=== PATIENT | female | born 1975 | race Caucasian/White ===

== ENCOUNTER 2016-09-21 16:16 | Emergency (ER) | payer OTHER ==
[~2016-09-21] VITALS: Ht 157.5 cm; Wt 58.6 kg
[2016-09-21 16:27] VITALS: BP 117/84; PULSE 79; RESP 22; O2SAT 100
--- NOTE | 2016-09-21 17:22 | ED.REPORT ---
HPI-General Illness Date of Service Sep 21, 2016 ED Provider: Good Waller MD A 41 year old female with recent plastic surgery to bilateral LE (09/21/2016) presents to the ED with post-operative, bilateral thigh pain that began yesterday. Patient is currently expressing concern because of worsening pain, drain dysfunction and swelling. She called her surgeon this afternoon who directed her to return for follow up tomorrow but the patient felt as if her legs "were going to explode". Patient has also been experiencing nausea without vomiting. She denies any fever or chills. Patient is unable to take NSAIDs due to history of stomach ulcers. Nursing Notes Stated Complaint: 1 DAY POST-OP BI THIGH, PAIN/LEAKAGE FROM DRAIN Chief Complaint: General Complaint Nursing Notes Reviewed: Yes Allergies: Uncoded Allergies: NSAIDS (Allergy, Intermediate, 09/21/16) General Time Seen by MD: 17:19 Chief Complaint Other (Post Op Pain) Hx Obtained From: Patient Arrived By: Walk-in Sudden in Onset?: No Onset Occurred: Yesterday Symptom Duration: Since onset Location: : Thigh left: Thigh right Quality: Painful Radiation: : Does not radiate Severity: Current: Moderate Severity: Maximum: Moderate Associated with: Reports: Nausea, Denies: Fever, Vomiting Pertinent Negative: Pt denies other symptoms Recent Healthcare: No recent hospitalization, Recent doctor visit Past Medical History Past Medical History Multiple weight loss surgeries Hx of stomach ulcers Past Surgical History "Thighplasty" (09/22/2016) Multiple weight loss operations Smoking History Unknown if Ever Smoker Social History Other Social History: Good social support, Local resident Ambulatory Status Independent Review of Systems Full Review of Systems Constitutional: Denies: Chills, Fever GI: Reports: Nausea, Denies: Vomiting Musculoskeletal: Reports: Extremity pain (LE), Extremity swelling (LE) Complete sys rev & neg: except as marked. Physical Exam Vital Signs Vital Signs Date Time Temp Pulse Resp B/P Pulse Ox O2 Delivery O2 Flow Rate FiO2 09/21/16 20:54 83 16 98/69 99 Room Air 09/21/16 16:27 36.6 79 22 117/84 100 Room Air Initial VS: Reviewed Neck: Supple, Non-tender, Full range of motion Skin: Warm, Dry, No cyanosis Neurologic: Alert, Oriented, Nonfocal Psychiatric: Mood/affect normal, Behavior normal, Normal thought content General/Constitutional: Awake, Alert Behavior: Positive: Anxious Head / Eyes: Atraumatic, Normocephalic, PERRL Respiratory / Chest: Atraumatic, Breath sounds NL, Breath sounds = bilat, No respiratory distress Cardiovascular: Heart rate NL, Regular rhythm, Heart sounds NL, No murmurs Abdomen: Atraumatic, Soft Upper Extremities Upper Extremity / MS: Atraumatic, Inspection NL, Neurologic intact, Vascular intact Lower Extremity / Pelvis / MS: Neurologic intact, Vascular intact LOWER EXTREMITIES: Bandages present around bilateral thighs Left leg - medial incision to left knee No surrounding erythema, fluctuance or mass KETURAH drain is in fluid - mild amount of discharge. Interpretation & Diagnostics US Focused Lower Ext Venous IMPRESSION: No evidence of DVT Exam Performed by: Radiologist Re-Eval/Medical Decision Med Decision/Clinical Course 41-year-old female who is one day status post cosmetic surgery to her bilateral thighs to remove excess skin presenting with left thigh pain. She reports the KETURAH drain is not draining. There is no evidence of infection. Ultrasound shows no DVT or abscess or fluid pocket. She was advised to follow-up with her surgeon tomorrow which is what he had told her. Return precautions given regarding signs and symptoms of infection or other new or worsening symptoms. Time of Eval: 18:09 Patient Status: Condition improved Re-Evaluation/Progress Note: She is informed of her reassuring examination. All questions are addressed. Patient agrees to follow up with her surgeon. She is offered an US to rule out DVT and accepts. Counseled Regarding: Diagnosis, Need for follow-up, When/why to return to ED Discharge & Departure Primary Impression: Post-operative pain Disposition: Home Discharge Condition All VS Reviewed: Yes Condition: Improved Additional Instructions: Thank you for trusting us with your care this evening. Your emergency department examination and ultrasound are reassuring that there is no dangerous cause for concern at this time. Please follow up with your surgeon tomorrow. Please return to the emergency department if you begin to develop any new or worsening conditions including any high fever, shaking chills, nausea, vomiting , worsening pain, any redness/swelling, numbness/tingling or weakness in the legs. Referrals: [facility] Scribe Attestation Portions of this note were transcribed by Rebecca Yoon. I, Dr. Waller personally performed the history, physical exam and medical decision-making; I reviewed and confirmed the accuracy of the information in the transcribed note. Signed by: Mitchell Tompkins, 09/21/161914. Good Waller MD Sep 21, 2016 17:22 REBECCA YOON Sep 21, 2016 17:53
[2016-09-21 20:54] VITALS: BP 98/69; PULSE 83; RESP 16; O2SAT 99
--- NOTE | 2016-10-06 12:11 | DRSVH ---
CORRECTED MR NUMBER ON 10/06/16 PROCEDURE: US VEINOUS LEG DUPLEX UNILATERAL, LEFT INDICATIONS: r/o LLE DVT. Surgery yesterday L Leg pian TECHNIQUE: Real-time imaging, as well as color and pulse Doppler interrogation, were performed of the lower extr emity deep veins from the inguinal ligament to the popliteal fossa. COMPARISON: None. FINDINGS: The deep veins are normally compressible, and free of intraluminal thrombus. Color and pu lse Doppler demonstrate normal phasic intraluminal flow. There is normal augmentation response to di stal compression maneuver. IMPRESSION: The study is somewhat limited by postsurgical changes at the groin and the region, but no DVT seen in the deep venous structures available for review (the left superficial femoral vein). Dictated by: Kareem Hicks M.D. on 09/22/2016 at 9:20 Approved by: Kareem Hicks M.D. on 09/22/2016 at 9:21
== END 2016-09-21 20:00 | disposition home or self-care (01) ==
LOC: SED 16:16 → EDUNIT# 16:16 → SED 20:00
DX: M79.652 Pain in left thigh (principal); G89.18 Other acute postprocedural pain; R11.0 Nausea; K21.9 Gastro-esophageal reflux disease without esophagitis; Z98.890 Other specified postprocedural states; Z87.19 Personal history of other diseases of the digestive system; Z98.84 Bariatric surgery status; Z88.6 Allergy status to analgesic agent
CPT/HCPCS: 93970; 96372; 99284; J2270

== ENCOUNTER 2016-09-23 22:55 | Emergency (ER) | payer OTHER ==
[~2016-09-23] VITALS: Ht 157.5 cm; Wt 58.0 kg
[2016-09-23 23:05] VITALS: BP 107/74; PULSE 77; RESP 18; O2SAT 100
--- NOTE | 2016-09-24 00:36 | ED.REPORT ---
HPI-General Illness Date of Service Sep 24, 2016 ED Provider: Dr. Espinal 41 y/o female with a recent plastic surgery to bilateral lower extremities presents to the ED with post-operative, bilateral thigh pain, onset 3 days ago. The pt was seen at the ED 3 days ago with the same complaint and was discharged with instructions to follow up with her surgeon. She talked to her surgeon, Dr. Sosa at [facility], who recommended tightening the fuad bandages and elevating her legs. She also complains of drain dysfunction and worsening swelling, despite following post-op instructions.She states "I'm just asking for one day of pain medications." The pt was prescribed 50 Oxycodone 5mg tablets upon discharge after her surgery and has used them all within 3 days. Nursing Notes Stated Complaint: POST-OP PAIN Chief Complaint: Extremity Trauma Nursing Notes Reviewed: Yes Allergies: Uncoded Allergies: NSAIDS (Allergy, Intermediate, 09/21/16) General Time Seen by MD: 00:36 Chief Complaint Other (bilateral thigh pain) Hx Obtained From: Patient Arrived By: Walk-in Sudden in Onset?: No Onset Occurred: 4 days ago Symptom Duration: Since onset Location: : Thigh left: Thigh right Quality: Painful Radiation: : Does not radiate Severity: Current: Severe Severity: Maximum: Severe Recent Healthcare: Recent doctor visit Similar Sx Previous: Yes Past Medical History Past Medical History Multiple weight loss surgeries Hx of stomach ulcers Past Surgical History "Thighplasty" (09/22/2016) Multiple weight loss operations Smoking History Unknown if Ever Smoker Social History Other Social History: Good social support, Local resident Ambulatory Status Independent Review of Systems Full Review of Systems Musculoskeletal: Reports: Extremity pain (bilateral thigh pain), Extremity swelling (bilateral thigh swelling, post-op) Complete sys rev & neg: except as marked. Physical Exam Vital Signs Vital Signs Date Time Temp Pulse Resp B/P Pulse Ox O2 Delivery O2 Flow Rate FiO2 09/24/16 02:17 36.6 74 16 112/76 99 Room Air 09/23/16 23:05 36.2 77 18 107/74 100 Room Air Initial VS: Reviewed Head / Eyes: Atraumatic, Normocephalic Neck: Supple, Non-tender, Full range of motion Respiratory: Breath sounds normal, Clear to auscultation, No respiratory distress Cardiovascular: Regular rate & rhythm, Heart sounds normal, Intact distal pulses Abdomen / GI: Soft, Non-tender Skin: Warm, Dry, No cyanosis Neurologic: Alert, Oriented, Nonfocal General/Constitutional: Awake, Alert, Cooperative Upper Extremities Upper Extremity / MS: Atraumatic, Full range of motion, No swelling, No erythema, No deformity, Neurologic intact, Vascular intact Lower Extremity / Pelvis / MS: Atraumatic, No erythema, No deformity, Neurologic intact, Vascular intact Both thighs bandaged. Bilateral KETURAH drains have small amount of fluid in them each. Dressings taken down, wounds look good no erythemal warmth or dishcarge Re-Eval/Medical Decision Source of Hx: Old records Time of Eval: 01:45 Patient Status: Condition improved Re-Evaluation/Progress Note: Took down the dressing on both legs. The wounds are healing well. There is no enduration and warmth and the KETURAH drains are functioning properly. Discussed diagnosis and plan to discharge. Pt understands and agrees with the plan. F/U instructions and RTER warning given. All questions addressed. Consultation : Call Returned at: 02:09 Network Systems Engineer: Will see patient, Agrees with eval, Agrees with plan Note: Consulted Dr. Sosa, surgeon who states the pt was prescribed 50 Oxycodone tablets. Used those in less than 3 days. He will see the pt next week. Counseled Regarding: Diagnosis, Need for follow-up, When/why to return to ED Discharge & Departure Primary Impression: Post-operative pain Disposition: Home Discharge Condition All VS Reviewed: Yes Additional Instructions: Wounds appear to be healing well. We have provided 10 oxycodone/apap for short- term pain control. May use 1-2 every 4 hours as needed for pain. Follow up GIOVANA at [facility] for further pain control. Return to ED for fevers, redness from legs. Referrals: [facility] Res[facility] Scribe Attestation Portions of this note were transcribed by Teofilo Quiñones. I, , personally performed the history, physical exam and medical decision- making;I reviewed and confirmed the accuracy of the information in the transcribed note. Signed by Mitchell Latham. 09/24/16 02:16 John Paul Espinal MD Sep 24, 2016 00:36 Teofilo Quiñones Sep 24, 2016 00:48
[2016-09-24] MEDS ORDERED: _oxyCODONE/APAP 5-325 mg Tablet PO PRN (01:50)
[2016-09-24 02:17] VITALS: BP 112/76; PULSE 74; RESP 16; O2SAT 99
== END 2016-09-24 02:18 | disposition home or self-care (01) ==
LOC: SED 22:55
DX: G89.18 Other acute postprocedural pain (principal); Z88.6 Allergy status to analgesic agent

== ENCOUNTER 2016-09-26 20:50 | Emergency (ER) | payer OTHER ==
[~2016-09-26] VITALS: Ht 157.5 cm; Wt 58.6 kg
[2016-09-26 20:59] VITALS: BP 112/70; PULSE 82; RESP 18; O2SAT 100
--- NOTE | 2016-09-27 00:15 | ED.REPORT ---
HPI-Extremity Problem Lower Date of Service Sep 27, 2016 ED Provider: Dr. Seals 41 y/o female with a hx of meth, cocaine and alcohol abuse with a recent plastic surgery to bilateral lower extremities presents to the ED with post- operative, bilateral thigh pain, onset a week ago. Associated sx include bilateral lower extremity swelling, worsening erythema and mild dehydration. She denies fever and using narcotics chronically. The pt was seen at the ED 3 days ago with the same complaint and was discharged with a prescription for Oxycodone. She states her surgeon, Dr. Sosa at [facility], has refused to prescribe any more pain medications. Her last alcoholic drink was 2 days ago. Nursing Notes Stated Complaint: PAIN IN LEGS Chief Complaint: General Complaint Nursing Notes Reviewed: Yes Allergies: Uncoded Allergies: NSAIDS (Allergy, Intermediate, 09/21/16) Scheduled PRN oxyCODONE-Acetaminophen 5-325 mg (oxyCODONE-Acetaminophen 5-325 mg) 1 Each Tablet 1-2 TAB PO Q6H PRN PRN For Pain General Time Seen by MD: 00:14 Chief Complaint Other (Bilateral thigh pain post surgery) Hx Obtained From: Patient Arrived By: Walk-in Onset Occurred: 1 week ago Symptom Duration: Since onset Location: : Thigh left: Thigh right Quality: Painful Severity: Current: Severe Severity: Maximum: Severe Recent Healthcare: Recent doctor visit Similar Sx Previous: Yes Past Medical History Past Medical History Multiple weight loss surgeries Hx of stomach ulcers Past Surgical History "Thighplasty" (09/22/2016) Multiple weight loss operations Smoking History Current Every Day Smoker Social History Alcohol Use: 1-3 per day Drug Use: Cocaine, Meth Other Social History: Good social support, Local resident Ambulatory Status Independent Review of Systems Reports: erythema in both thighs near the drains Musculoskeletal: Reports: Extremity pain (both thighs), Extremity swelling ( both thighs) Complete sys rev & neg: except as marked. Physical Exam Initial Vital Signs Vital Signs (First) Date Time Temp Pulse Resp B/P Pulse Ox O2 Delivery O2 Flow Rate FiO2 09/26/16 20:59 36.8 82 18 112/70 100 Room Air Initial VS: Reviewed, Vital signs normal Head / Eyes: Atraumatic, Normocephalic Neck: Supple, Non-tender, Full range of motion Respiratory: Breath sounds normal, Clear to auscultation, No respiratory distress Cardiovascular: Regular rate & rhythm, Heart sounds normal, Intact distal pulses Abdomen / GI: Soft, Non-tender Upper Extremities: Vascular intact, Neuro intact, No swelling, No tenderness Skin: Warm, Dry, No cyanosis Neurologic: Alert, Oriented, Nonfocal Lower Extremity / Pelvis / MS: Atraumatic, Full range of motion, No deformity, Neurologic intact, Vascular intact Thigh fuad-wraps in place Bilateral Nile-Carcamo drains in place Swelling and erythema distal to the insertion point of the drains Ankle / Foot: Atraumatic, Full range of motion, No swelling, Non-tender, No deformity, Neurologic intact Interpretation & Diagnostics Lab Results Interpretation Result Diagram: 09/27/16 0140 09/27/16 0140 Test 09/27/16 01:40 09/27/16 04:10 White Blood Count 15.4th/mm3 (3.8-10.1) Red Blood Count 4.05mil/mm3 (3.90-5.20) Hemoglobin 12.0g/dL (12.0-15.6) Hematocrit 36.3% (35.0-46.0) Mean Corpuscular Volume 89.6fL (81-100) Mean Corpuscular Hemoglobin 29.6pg (27.0-35.0) Mean Corpuscular Hemoglobin Concent 33.1% (32.0-37.0) Red Cell Distribution Width 14.4% (12.3-15.4) Platelet Count 354bil/L (150-400) Neutrophils (%) (Auto) 74.6% (40-74) Lymphocytes (%) (Auto) 15.0% (14-46) Monocytes (%) (Auto) 9.4% (4-12) Eosinophils (%) (Auto) 0.5% (0-5) Basophils (%) (Auto) 0.2% (0-3) Sodium Level 136mEq/L (134-144) Potassium Level 4.3mEq/L (3.5-5.2) Chloride Level 95mEq/L (97-108) Carbon Dioxide Level 29mmol/L (18-29) Blood Urea Nitrogen 8mg/dL (6-20) Creatinine 0.46mg/dL (0.57-1.00) Estimat Glomerular Filtration Rate 217mL/min (>59) Glucose Level 105mg/dL (60-99) Lactic Acid Level 0.8mmol/L (0.4-2.0) Calcium Level 8.6mg/dL (8.5-10.1) Magnesium Level 1.7mg/dL (1.6-2.6) Total Bilirubin 0.4mg/dL (0.0-1.2) Aspartate Amino Transf (AST/SGOT) 72U/L (0-50) Alanine Aminotransferase (ALT/SGPT) 103U/L (0-32) Alkaline Phosphatase 242U/L (25-150) Total Protein 6.3g/dL (6.4-8.4) Albumin 3.1g/dL (3.4-5.0) Urine Color Yellow (YELLOW) Urine Appearance Cloudy (CLEAR,HAZY) Urine pH 7.5 (5.0-8.0) Urine Specific Mckinney 1.010 (1.003-1.035) Urine Protein Negativemg/dL (NEG,TRACE) Urine Glucose (UA) Negativemg/dL (NEGATIVE) Urine Ketones Negativemg/dL (NEGATIVE) Urine Occult Blood Negative (NEGATIVE) Urine Nitrite Positive (NEGATIVE) Urine Bilirubin Negative (NEGATIVE) Urine Urobilinogen 1.0mg/dL (NORMAL) Urine Leukocyte Esterase Small (NEGATIVE) Urine RBC 0-2/hpf (0-2) Urine WBC 11-50/hpf (0-5) Urine Epithelial Cells Many/hpf (NONE-MOD) Urine Crystals None seen (NONE SEEN) Urine Bacteria Many/hpf (NONE-FEW) Urine Hyaline Casts None/lpf (NONE) Urine Granular Casts None seen (NONE SEEN) Urine Waxy Casts None seen (NONE SEEN) Urine Red Blood Cell Casts None seen (NONE SEEN) Urine White Blood Cell Casts None seen (NONE SEEN) Urine Mucus None seen (None Seen) Urine Trichomonas None seen (NONE SEEN) Urine Yeast None (NONE SEEN) Urinalysis Comment None Urine Culture Reflexed Indicated Lab Results Interpretation: Elevated white blood count Re-Eval/Medical Decision Med Decision/Clinical Course 41-year-old female who had a recent thigh tissue reduction surgery. She has David-Carcamo drain in place in both medial thighs. There is evidence of cellulitis with increased pain and redness and swelling. She has no white blood count. She was medicated for pain and given first dose of vancomycin and Zosyn. She became quite antsy and did not want to stick around for further diuresis and workup. She was given prescriptions for Percocet and clindamycin and Augmentin. She will follow-up with her doctor in 2 days at [facility]. Source of Hx: Old records Re-Evaluation/Progress #1: Time of Eval: 02:18 Re-Evaluation/Progress Note: Rechecked pt. She continues to reports pain. Re-Evaluation/Progress #2: Time of Eval: 05:18 Patient Status: Condition improved Re-Evaluation/Progress Note: Rechecked pt. Discussed lab results, diagnosis and plan to discharge. Pt understands and agrees with the plan. F/U instructions and RTER warning given. All questions addressed. Counseled Regarding: Diagnosis, Lab results, Need for follow-up, When/why to return to ED Discharge & Departure Impression: Primary Impression: Post-operative pain Additional Impression: Cellulitis Site of cellulitis: extremity Site of cellulitis of extremity: lower extremity Laterality: unspecified laterality Qualified Code: L03.119 - Cellulitis of unspecified part of limb Disposition: Home Discharge Condition All VS Reviewed: Yes Condition: Stable Additional Instructions: Keep the wraps in place as instructed, adjust for comfort. Oxycodone/ acetaminophen (Percocet) one or 2 every 4-6 hours as needed for pain, #10 dispensed and #20 prescription written. Clindamycin 3 mg 3 times a day, #10 days dispensed. Augmentin 875 twice a day, #14 dispensed. Go to [facility] for a fever spike a fever or have increasing pain. Otherwise follow-up in the clinic as planned on Tuesday. It also appears that he may have a urinary tract infection. Referrals: [facility] Scribe Attestation Portions of this note were transcribed by Teofilo Quiñones. I, , personally performed the history, physical exam and medical decision- making;I reviewed and confirmed the accuracy of the information in the transcribed note. Signed by Mitchell Latham. 09/27/16 05:43 copies to: [facility] Bandar Seals MD Sep 27, 2016 00:15 Teofilo Quiñones Sep 27, 2016 00:26
[2016-09-27] MEDS ORDERED: 0.9% Sodium Chloride 1,000 ML IV ONE (00:27)
[2016-09-27] MEDS ORDERED: Ondansetron 2 mg/mL 2 mL Inj IVPUSH PRN (00:30)
[2016-09-27] MEDS ORDERED: Piperacillin-Tazo 3.375 Gm Inj 3.375 GM in Dextrose 5% Minibag Plus 50 ML IV ONE (01:10)
[2016-09-27] MEDS ORDERED: Vancomycin Dose per Pharmacist XX ONE (01:12)
[2016-09-27] MEDS ORDERED: Vancomycin Inj 1,250 MG in 0.9% Sodium Chloride 250 ML IV ONE (01:15)
[2016-09-27] MEDS: HYDROmorphone 1 mg/mL Inj IVPUSH PRN ×3 (01:47→04:25)
[2016-09-27 01:50] LABS: BASOPHILS % (AUTO) 0.2 % (0-3); EOSINOPHILS % (AUTO) 0.5 % (0-5); MONOCYTES % (AUTO) 9.4 % (4-12); Mean Corpuscular Hemoglobin 29.6 pg (27.0-35.0); Mean Corpuscular Volume 89.6 fL (81-100); NEUTROPHILS % (AUTO) 74.6 % (40-74); Platelet Count 354 bil/L (150-400)
[2016-09-27 02:17] LABS: Magnesium 1.7 mg/dL (1.6-2.6)
[2016-09-27 04:25] LABS: APPEARANCE,URINE CLOUDY (CLEAR,HAZY); COLOR,URINE YELLOW (YELLOW); OCCULT BLOOD,URINE NEGATIVE (NEGATIVE); PH,URINE 7.5 (5.0-8.0)
[2016-09-27 05:21] VITALS: BP 109/75; PULSE 83; RESP 28; O2SAT 100
[2016-09-27] MEDS ORDERED: _oxyCODONE/APAP 5-325 mg Tablet PO PRN (05:35)
[2016-09-27] MEDS ORDERED: OXYC1TAB24 PO (05:35)
[2016-09-27 05:43] VITALS: BP 109/75; PULSE 83; RESP 28; O2SAT 100
[2016-09-27] MEDS ORDERED: _Clindamycin 150 mg Capsule PO SCH (06:30)
[2016-09-27] MEDS ORDERED: _Amoxicillin-Clavulanate 875-125 mg Tablet PO SCH (08:30)
== END 2016-09-27 06:23 | disposition home or self-care (01) ==
LOC: SED 20:50
DX: G89.18 Other acute postprocedural pain (principal); L03.115 Cellulitis of right lower limb; L03.116 Cellulitis of left lower limb; B96.20 Unspecified Escherichia coli [E. coli] as the cause of diseases classified elsewhere; D72.829 Elevated white blood cell count, unspecified; E86.0 Dehydration; F17.200 Nicotine dependence, unspecified, uncomplicated; Z98.890 Other specified postprocedural states
CPT/HCPCS: 36415; 80053; 81000; 83605; 83735; 85025; 87040; 87077; 87086; 87088; 87186; 96365; 96367; 96375; 96376; 99285; J1170; J2405; J2543; J3370; J7030; J7050